=== PATIENT | female | born 1990 | race Caucasian/White ===

== ENCOUNTER 2019-07-20 21:44 | Observation (INO) | payer MEDICAID, OTHER ==
[~2019-07-20] VITALS: Ht 154.9 cm; Wt 68.0 kg
[2019-07-20] MEDS ORDERED: FOLI-43 PO (23:08)
[2019-07-20] MEDS ORDERED: PREN-176 PO (23:08)
[2019-07-20] MEDS ORDERED: CALC-1042 PO (23:08)
[2019-07-20] MEDS ORDERED: FERR-71 PO (23:08)
[2019-07-20] MEDS ORDERED: SODIUM CHLORIDE 0.9% 100 ML IV NR (23:15)
[2019-07-20] MEDS ORDERED: ONDANSETRON HCL 4MG/2ML INJ IV NR (23:15)
[2019-07-21] MEDS ORDERED: MVI, ADULT NO.1 10 ML in SODIUM CHLORIDE 0.9% 1,000 ML IV SCH ×2
== END 2019-07-21 02:25 | disposition home or self-care (01) ==
LOC: 8 EST LDRP 21:44
PROVIDERS: ADMIT Specialist; ATTEND Specialist
DX: O21.2 Late vomiting of pregnancy (principal); Z3A.36 36 weeks gestation of pregnancy
CPT/HCPCS: 96365; 96366; 96375; 99281; G0378; J2405; J3490; J7030; 96360; 96361

== ENCOUNTER 2019-08-08 22:59 | Inpatient (IN) | payer OTHER ==
[~2019-08-08] VITALS: Ht 152.4 cm; Wt 68.0 kg
[~2019-08-08 22:59] MED LIST: CALC-1042 PO; FERR-71 PO; FOLI-43 PO; PREN-176 PO
[2019-08-08] MEDS ORDERED: DEXT 5%/LR + PITOCIN 20UNITS/L 1,000 ML IV SCH (23:25)
[2019-08-08] MEDS ORDERED: PENICILLIN G POTASSIUM 2.5 MMU in DEXTROSE 5% WATER 50 ML IV SCH (23:30)
[2019-08-08] MEDS ORDERED: LIDOCAINE HCL 1% 20ML VIAL (Pyxis) INJ INFIL SCH (23:30)
[2019-08-08] MEDS ORDERED: BUTORPHANOL TARTRATE 2 MG/ML VIAL IV PRN (23:30)
[2019-08-08] MEDS ORDERED: METHYLERGONOVINE MALEATE 0.2 MG/ML IM PRN (23:30)
[2019-08-08] MEDS ORDERED: NALOXONE HCL 0.4 MG/ML 1ML VIAL IM PRN (23:30)
[2019-08-09] MEDS: LACTATED RINGERS 1,000 ML IV SCH ×2 (00:59→04:27)
[2019-08-09] MEDS ORDERED: PENICILLIN G POTASSIUM 5 MMU in DEXT 5% WATER 100 ML IV SCH (01:00)
[2019-08-09 01:23] LABS: BASOPHILS % 0.2 % (0.0-2.0); EOSINOPHILS % 0.1 % (0.0-5.0); HEMATOCRIT. 34.2 % (36.0-48.0); HEMOGLOBIN. 11.6 g/dL (12.0-16.0); LYMPHOCYTES % 8.6 % (20.0-50.0); MEAN CORPUSCULAR HEMOGLOBIN 26.6 pg (28.0-32.0); MEAN CORPUSCULAR VOLUME 78.4 fL (81.0-99.0); MEAN PLATELET VOLUME 11.2 fl (7.4-10.4); MONOCYTES % 6.9 % (2.0-8.0); NEUTROPHILS % 84.2 % (40.0-76.0); PLATELET 222 x1000/uL (130-400); RED BLOOD CELL COUNT 4.36 mill/uL (4.2-5.4); RED CELL DISTRIBUTION WIDTH 13.9 % (11.6-14.6)
[2019-08-09 01:24] LABS: CLARITY URINE CLEAR (CLEAR); COLOR URINE YELLOW (YELLOW); KETONES URINE TRACE (NEGATIVE); LEUKOCYTE ESTERASE URINE 2+ (NEGATIVE); NITRITE URINE NEGATIVE (NEGATIVE); OCCULT BLOOD URINE 3+ (NEGATIVE); PROTEIN URINE NEGATIVE (NEGATIVE); SPECIFIC GRAVITY URINE 1.013 (1.005-1.030)
[2019-08-09 01:30] LABS: INR 0.9; PARTIAL THROMBOPLASTIN TIME 27.1 sec (23.4-31.0); PROTHROMBIN TIME 9.6 sec (9.6-11.0)
[2019-08-09 01:58] LABS: *AMPHETAMINES SCREEN URINE NEGATIVE (NEGATIVE); *BARBITURATES SCREEN URINE NEGATIVE (NEGATIVE); *BENZODIAZEPINES SCREEN URINE NEGATIVE (NEGATIVE)
[2019-08-09 01:59] LABS: *COCAINE SCREEN URINE NEGATIVE (NEGATIVE); CANNABINOID URINE SCREEN NEGATIVE (NEGATIVE); METHADONE URINE SCREEN NEGATIVE (NEGATIVE); OPIATES URINE SCREEN NEGATIVE (NEGATIVE); PHENCYCLIDINE URINE SCREEN NEGATIVE (NEGATIVE)
[2019-08-09 02:12] LABS: HEPATITIS B SURFACE ANTIGEN NEGATIVE
[2019-08-09] MEDS ORDERED: ROPIVACAINE HCL/PF EPIDURAL 200 ML EPI SCH (04:00)
[2019-08-09] MEDS: PENICILLIN G POTASSIUM 2.5 MMU in DEXTROSE 5% WATER 50 ML IV SCH ×2 (05:09→09:10)
[2019-08-09] MEDS ORDERED: ONDANSETRON HCL 4MG/2ML INJ IV PRN (06:15)
[2019-08-09] MEDS ORDERED: DEXT 5%/LR + PITOCIN 20UNITS/L 1,000 ML IV SCH (10:28)
[2019-08-09] MEDS ORDERED: BISACODYL 10MG SUPP PR PRN (10:30)
[2019-08-09] MEDS ORDERED: GLYCERIN/WITCH HAZEL LEAF MEDICATED PAD TOP PRN (10:30)
[2019-08-09] MEDS ORDERED: IBUPROFEN 400MG TABLET PO PRN (10:30)
[2019-08-09] MEDS ORDERED: BENZOCAINE/LANOLIN/ALOE VERA SPRAY TOP PRN (10:30)
[2019-08-09] MEDS ORDERED: HEMORRHOIDAL SUPP PR PRN (10:30)
[2019-08-09] MEDS ORDERED: ACETAMINOPHEN WITH CODEINE 300/30MG TABLET PO PRN (10:30)
[2019-08-09] MEDS ORDERED: DIPHENHYDRAMINE 25MG CAPSULE PO PRN (10:30)
[2019-08-09 12:00] VITALS: BP 128/84
[2019-08-09] MEDS: LANOLIN OINT 7GM TUBE TOP PRN (12:25)
[2019-08-09 13:00] VITALS: BP 114/81
[2019-08-09] MEDS ORDERED: LIDOCAINE HCL 2%/EPINEPHRINE 1:100,000 20 ML VIAL INFIL ONE (13:37)
[2019-08-09] MEDS: IBUPROFEN 800MG TABLET PO PRN (18:52)
[2019-08-09 20:00] VITALS: BP 115/64
[2019-08-09] MEDS: SIMETHICONE 80MG TABLET CHEW PO SCH (21:43)
[2019-08-09] MEDS: DOCUSATE SODIUM 100MG CAPSULE PO SCH (21:43)
[2019-08-10 04:00] VITALS: BP 97/52
[2019-08-10] MEDS: IBUPROFEN 800MG TABLET PO PRN ×2 (04:25→12:47)
[2019-08-10 06:55] LABS: BASOPHILS % 0.3 % (0.0-2.0); EOSINOPHILS % 0.2 % (0.0-5.0); HEMATOCRIT. 27.7 % (36.0-48.0); HEMOGLOBIN. 9.3 g/dL (12.0-16.0); LYMPHOCYTES % 12.4 % (20.0-50.0); MEAN CORPUSCULAR HEMOGLOBIN 26.7 pg (28.0-32.0); MEAN PLATELET VOLUME 10.9 fl (7.4-10.4); MONOCYTES % 6.8 % (2.0-8.0); NEUTROPHILS % 80.3 % (40.0-76.0); PLATELET 161 x1000/uL (130-400)
[2019-08-10 07:36] VITALS: BP 90/55
[2019-08-10] MEDS: PRENATAL VIT/FE FUMARATE/FA TABLET PO SCH (08:44)
[2019-08-10] MEDS: FERROUS SULFATE 325MG TABLET PO SCH ×3 (08:44→17:49)
[2019-08-10] MEDS: SIMETHICONE 80MG TABLET CHEW PO SCH ×4 (08:44→21:29)
[2019-08-10 16:08] VITALS: BP 113/78
[2019-08-10 20:00] VITALS: BP 110/74
[2019-08-10] MEDS: DOCUSATE SODIUM 100MG CAPSULE PO SCH (21:29)
[2019-08-11] MEDS: IBUPROFEN 800MG TABLET PO PRN ×2 (00:04→09:00)
[2019-08-11 04:00] VITALS: BP 105/73
[2019-08-11] MEDS: LANOLIN OINT 7GM TUBE TOP PRN (04:26)
[2019-08-11 07:27] VITALS: BP 91/52
[2019-08-11] MEDS: SIMETHICONE 80MG TABLET CHEW PO SCH (08:59)
[2019-08-11] MEDS: FERROUS SULFATE 325MG TABLET PO SCH (08:59)
[2019-08-11] MEDS: PRENATAL VIT/FE FUMARATE/FA TABLET PO SCH (08:59)
== END 2019-08-11 11:45 | disposition home or self-care (01) | DRG 560 ==
LOC: 8 EST LDRP 22:59 → 8EST 08-09 11:25
PROVIDERS: ADMIT Specialist; ATTEND Specialist
PROC: 10E0XZZ Delivery of Products of Conception, External Approach (ICD-10-PCS; principal; 2019-08-09)
PROC: 3E0R3BZ Introduction of Anesthetic Agent into Spinal Canal, Percutaneous Approach (ICD-10-PCS; 2019-08-09)
PROC: 00HU33Z Insertion of Infusion Device into Spinal Canal, Percutaneous Approach (ICD-10-PCS; 2019-08-09)
PROC: 0HQ9XZZ Repair Perineum Skin, External Approach (ICD-10-PCS; 2019-08-09)
DX: O99.824 Streptococcus B carrier state complicating childbirth (principal); D64.9 Anemia, unspecified; O70.0 First degree perineal laceration during delivery; O99.72 Diseases of the skin and subcutaneous tissue complicating childbirth; L40.9 Psoriasis, unspecified; Z37.0 Single live birth; Z3A.37 37 weeks gestation of pregnancy; O99.03 Anemia complicating the puerperium
CPT/HCPCS: 36415; 80305; 81003; 85025; 86592; 86703; 86762; 86850; 86900; 87340; 99281; G0378; J2405; J2540; J2590; J2795; J3490; J7060